=== PATIENT | female | born 1960 | race Caucasian/White ===

== ENCOUNTER 2018-03-19 00:29 | Outpatient (CLI) | payer BC, SELFPAY ==
--- NOTE | 2018-03-19 08:15 | DI.MAMMO_ITS ---
SYMPTOM/DIAGNOSIS: SCREENING, Z12.31 MAMMOGRAMS: Mammograms were interpreted according to the usual protocol including computer analysis with CAD system, tomosynthesis and C view imaging. Comparison with prior examinations. Breast density C. No masses or microcalcifications are seen. There is nothing to suggest malignancy. IMPRESSION: Negative mammogram. Routine screening is recommended. Category I. MQSA ASSESSMENT OF FINDINGS: Negative. Category 1. Patient will receive a letter notifying them of these results. Bi-RADS category C. The breasts are heterogeneously dense, which may obscure small masses.
== END 2018-03-19 00:49 ==
PROVIDERS: PCP Obstetrics & Gynecology; Visit Provider Obstetrics & Gynecology
DX: Z12.31 Encounter for screening mammogram for malignant neoplasm of breast (principal)
CPT/HCPCS: 77063; 77067

== ENCOUNTER 2018-12-22 11:32 | Emergency (ER) | payer BC, SELFPAY ==
[2018-12-22 11:37] VITALS: BP 125/89; PULSE 95; RESP 20; TEMP 36.9; O2SAT 95
[2018-12-22 11:40] VITALS: RESP 20
--- NOTE | 2018-12-22 11:49 | ED.GENADUL_ITS ---
Discharge Plan Disposition Patient Disposition: HOME Condition: Stable Discharge Details Chief Complaint: GenMedical Clinical Impression: Tick bite Primary Care Provider: Yamilka Monsivais ED Provider: Misael Ortega Home Meds and New Rx's Prescriptions: No Action No Known Home Meds RF: 0 Discharge Instructions Instructions: Tick Bite (ED) Additional Instructions: if the test returns positive you will be contacted if symptoms continue follow up with your primary care provider if you have high fevers, feel more ill or have new symptoms such as difficulty breathing, chest pain/pressure or abdominal pain return to the emergency department Medical Decision Making 58 yo female states 2 weeks ago she removed a tick from her left upper back and was not sure how long she had it. She has had some intermittent nausea otherwise no other systemic symptoms and came in today to have the area where the tick was removed looked at. She has a 0.5mm area of the left upper back that is mildly red without surrounding erythema or bulls eye, doesn't appear to be typical of lyme disease and no evidence of cellulitis. Will send tick panel, she has no symptoms now so do not feel further w/u indicated, no abd pain or chest pain. Advised f/u with pcp if symptoms continue intermittently and return if worsening Differential Diagnosis lyme, tick bite HPI General Mode of arrival: ambulatory . Date/Time Provider Initiated Documentation: 12/22/18 11:35 . Limitations to Documentation: no limitations . Information obtained by: patient . History of Present Illness 58 year old F presents to the emergency department with the chief complaint of tick bite, described as moderate, Quality is described as aching, Patient reports radiation to back. Patient started experiencing this week(s) (2) and it has been constant. No relieving factors improve symptom(s), No exacerbating factors reported . Patient notes other (nausea). Patient did receive the following treatments prior to arrival, none Related Data Home Medications Medication Instructions Recorded Confirmed Unknown [No Known Home Meds] 07/30/18 12/22/18 Allergies Allergy/AdvReac Type Severity Reaction Status Date / Time No Known Allergies Allergy Unverified 12/22/18 11:40 General Stated Complaint: GenMedical PERLA: 4 Review of Systems Review of Systems All systems reviewed & are unremarkable except as noted in HPI and below Constitutional Denies chills, Denies fever(s) and Denies weakness Cardiovascular Denies chest pain and Denies dyspnea Respiratory Denies dyspnea Gastrointestinal Denies abdominal pain and Denies vomiting Musculoskeletal Denies joint swelling Neurologic Denies weakness [facility] Surgical History (Updated 03/28/18 @ 14:35 by [place] [facility] [place]) Dilation and curettage Tonsillectomy Family History Mother Lymphoma of gastrointestinal tract Father No problems noted. Brother No problems noted. Brother No problems noted. Son No problems noted. Brother Personal history of malignant neoplasm Social History Smoking/Tobacco Use Status: Never Alcohol Intake: never Substance use type: does not use Do you feel safe at home: Yes Do you feel safe in your relationship?: Yes Exam Const General: no acute distress Orientation: alert HENMT Head: normal to inspection Ears: external ears normal General nose exam: external nose normal Mouth: moist mucous membranes Eyes General: appearance normal, both eyes and all related structures Neck Neck: normal visual inspection Resp Effort & Inspection: normal respiratory effort and able to speak in complete sentences Cardio Rate: regular rate Skin General skin exam: elasticity normal Neuro General: alert and oriented x3 Extrem General: normal to inspection Psych Mental Status: mental status grossly normal Course Vital Signs Temperature 36.9 C 12/22/18 11:37 Pulse 95 H 12/22/18 11:37 Respiratory Rate 20 12/22/18 11:37 Blood Pressure 125/89 12/22/18 11:37 Pulse Oximetry 95 12/22/18 11:37 Temperature 36.9 C 12/22/18 11:37 Pulse 95 H 12/22/18 11:37 Respiratory Rate 20 12/22/18 11:40 Respiratory Effort Non-Labored 12/22/18 11:40 Respiratory Depth Normal 12/22/18 11:40 Respiratory Pattern Normal 12/22/18 11:40 Blood Pressure 125/89 12/22/18 11:37 Pulse Oximetry 95 12/22/18 11:37 Oxygen Delivery Method Room Air 12/22/18 11:37 Oxygen Flow Rate 0 12/22/18 11:37 Pain Level 0 12/22/18 11:37
[2018-12-24 13:34] LABS: Lyme Ab w Rflx to Lyme Confirm Negative
[2018-12-25 15:26] LABS: Anaplasma phagocytophilum Negative (Negative); B. miyamotoi PCR Negative (Negative); Babesia divergens/MO-1 Negative (Negative); Babesia duncani Negative (Negative); Babesia microti Negative (Negative); Ehrlichia chaffeensis Negative (Negative); Ehrlichia ewingii/canis Negative (Negative); Ehrlichia muris eauclairensis Negative (Negative)
== END 2018-12-22 12:15 | disposition home or self-care (01) ==
PROVIDERS: Emergency Provider Emergency Medicine; PCP Nurse Practitioner Family
DX: S20.462A Insect bite (nonvenomous) of left back wall of thorax, initial encounter (principal); W57.XXXA Bitten or stung by nonvenomous insect and other nonvenomous arthropods, initial encounter
CPT/HCPCS: 87798; 99283; 86618

== ENCOUNTER 2019-03-20 01:26 | Outpatient (CLI) | payer BC, SELFPAY ==
--- NOTE | 2019-03-20 07:46 | DI.MAMMO_ITS ---
EXAM: MG MAMMO SCREENING CLINICAL HISTORY: SCREENING,Z12.31. TECHNIQUE: Mammograms were interpreted according to the usual protocol including computer analysis w [facility] CAD system, tomosynthesis and C-view imaging. FINDINGS: The breast tissue is heterogeneously radiodense which somewhat limits the sensitivity of the study. There is no dominant mass. There are no suspicious calcifications and there has been no significant i nterval change when compared with prior images. IMPRESSION: No evidence of malignancy category 1, yearly screening mammography is recommended. BI-RADS category C . BI-RADS Cat 1 - Negative. Breast Density - Category C - Heterogeneously dense.
[2019-03-20 09:39] LABS: Calculated LDL 143 mg/dL; Cholesterol 214 mg/dL (50-200); Glucose 89 mg/dL (70-100); HDL Cholesterol 56 mg/dL (40-60); Triglyceride 78 mg/dL (30-150)
== END 2019-03-20 01:46 ==
PROVIDERS: PCP Nurse Practitioner Family; Visit Provider Obstetrics & Gynecology
DX: Z12.31 Encounter for screening mammogram for malignant neoplasm of breast (principal); Z13.1 Encounter for screening for diabetes mellitus; Z13.220 Encounter for screening for lipoid disorders
CPT/HCPCS: 36415; 77063; 77067; 80061; 82947

== ENCOUNTER 2020-03-23 00:42 | Outpatient (CLI) | payer OTHER, SELFPAY ==
--- NOTE | 2020-03-23 | DI.MAMMO_ITS ---
EXAM: MG MAMMO SCREENING CLINICAL HISTORY: SCREENING, Z12.31 TECHNIQUE: Bilateral full field digital CC and MLO mammographic images were obtained with 3D tomosyn thesis and utilizing computer aided detection (CAD). COMPARISON: Available for comparison. FINDINGS: Masses/Architectural Distortion: None seen. Microcalcifications: No suspicious pleomorphic-type are seen. Skin Thickening/Nipple Retraction: None. IMPRESSION: 1. No significant interval change with no specific features of malignancy noted. 2. Unless there is more urgent need, screening mammography is recommended, as per [employer] guidelines. BI-RADS Category 1 - Negative Breast Density - Category C - Heterogeneously dense The mammogram demonstrates the patient's breast tissue is dense. Dense breast tissue is very common a nd is not abnormal but dense breast tissue can make it harder to find cancer on a mammogram. Also, de nse breast tissue may increase their breast cancer risk. This information about the result of the [facility] mogram report was provided to the patient to raise their awareness. Use this report when you speak wi th the patient about their risks for breast cancer, which includes their family history. At that time , you may recommend for more screening tests (Ultrasound or MRI) as they might be useful based on the ir risk. A negative radiographic report should not delay biopsy if a dominant or clinically suspicious mass is present. Up to ten percent of cancers are not identified on mammography. A negative report may reinforce clinical impression. Adenosis and dense breasts may obscure an underlying neoplasm. False positive reports average 6 to 10%. Patient will receive a letter notifying them of these results.
== END 2020-03-23 01:02 ==
PROVIDERS: PCP Nurse Practitioner Family; Visit Provider Obstetrics & Gynecology
DX: Z12.31 Encounter for screening mammogram for malignant neoplasm of breast (principal); R92.2 Inconclusive mammogram
CPT/HCPCS: 77063; 77067

== ENCOUNTER 2021-03-24 02:20 | Outpatient (CLI) | payer OTHER, SELFPAY ==
--- NOTE | 2021-03-24 | DI.MAMMO_ITS ---
Exam(s) MAMMO SCREENING EXAM: MAMMO SCREENING CLINICAL HISTORY: SCREENING, Z12.39. TECHNIQUE: Bilateral full field digital CC and MLO mammographic images were obtained with 3D tomosyn thesis and utilizing computer aided detection (CAD). COMPARISON: Prior mammograms dating back to 2011, the most recent being March 2012. FINDINGS: There are no CAD designations. There are no new spiculated masses nor malignant appearing microcalcification groups. There is no significant architectural distortion nor skin thickening-retraction. IMPRESSION: No radiographic evidence of malignancy. BI-RADS Category 1 - Negative Breast Density - Category C - Heterogeneously dense Breast density Category C or D implies that the patient has dense breast tissue. Dense breast tissue can make it harder to find cancer on a mammogram. Dense breast tissue is also associated with an incr eased risk of breast cancer. This information about the result of the mammogram report was provided to the patient to raise their awareness. Use this report when you speak with the patient about their risks for breast cancer, which includes their family history. At that time, you may recommend additional screening tests (Ultrasoun d or MRI) as these tests may add significant information. A negative radiographic report should not delay biopsy if a dominant or clinically suspicious mass is present. Up to ten percent of cancers are not identified on mammography. A negative report may reinforce clinical impression. Adenosis and dense breasts may obscure an underlying neoplasm. False positive reports average 6 to 10%. Patient will receive a letter notifying them of these results.
== END 2021-03-24 02:40 ==
PROVIDERS: PCP Nurse Practitioner Family; Visit Provider Obstetrics & Gynecology
DX: Z12.31 Encounter for screening mammogram for malignant neoplasm of breast (principal); R92.8 Other abnormal and inconclusive findings on diagnostic imaging of breast
CPT/HCPCS: 77063; 77067

== ENCOUNTER → 2022-03-28 01:23 | Outpatient (CLI) | payer OTHER, SELFPAY ==
--- NOTE | 2022-03-28 18:00 | DI.MAMMO_ITS ---
Exam(s) MAMMO SCREENING EXAM: MAMMO SCREENING CLINICAL HISTORY: SCREENING, Z12.31 TECHNIQUE: Bilateral full field digital CC and MLO mammographic images were obtained with 3D tomosyn thesis and utilizing computer aided detection (CAD). COMPARISON: Available for comparison. FINDINGS: Masses/Architectural Distortion: None seen. Microcalcifications: No suspicious pleomorphic-type are seen. Skin Thickening/Nipple Retraction: None. IMPRESSION: 1. No significant interval change with no specific features of malignancy noted. 2. Unless there is more urgent need, screening mammography is recommended, as per [employer] guidelines. BI-RADS Category 1 - Negative Breast Density - Category C - Heterogeneously dense Breast density category C or D implies that the patient has dense breast tissue. Dense breast tissue is very common and is not abnormal but dense breast tissue can make it harder to find cancer on a ma mmogram. Also, dense breast tissue may increase their breast cancer risk. This information about the result of the mammogram report was provided to the patient to raise their awareness. Use this report when you speak with the patient about their risks for breast cancer, which includes their family hist ory. At that time, you may recommend for more screening tests (Ultrasound or MRI) as they might be us eful based on their risk. A negative radiographic report should not delay biopsy if a dominant or clinically suspicious mass is present. Up to ten percent of cancers are not identified on mammography. A negative report may reinforce clinical impression. Adenosis and dense breasts may obscure an underlying neoplasm. False positive reports average 6 to 10%. Patient will receive a letter notifying them of these results.
== END ==
PROVIDERS: PCP Nurse Practitioner Family; Visit Provider Obstetrics & Gynecology
DX: Z12.31 Encounter for screening mammogram for malignant neoplasm of breast (principal)
CPT/HCPCS: 77063; 77067

== ENCOUNTER → 2023-05-09 02:17 | Outpatient (CLI) | payer OTHER, SELFPAY ==
--- NOTE | 2023-05-09 | DI.MAMMO_ITS ---
Exam(s) MAMMO SCREENING EXAM: MAMMO SCREENING CLINICAL HISTORY: SCREENING MAMMO FOR BREAST CANCER Z12.31. TECHNIQUE: Bilateral full field digital CC and MLO mammographic images were obtained with 3D tomosyn thesis and utilizing computer aided detection (CAD). COMPARISON: Prior mammograms were reviewed. FINDINGS: There has been no significant change in the appearance and distribution of the fibroglandular tissue. There are no CAD designations. There are no new spiculated masses nor malignant appearing microcalcification groups. There is no significant architectural distortion nor skin thickening-retraction. IMPRESSION: No radiographic evidence of malignancy. BI-RADS Category 1 - Negative Breast Density - Category B - Scattered areas of fibroglandular density Breast density Category C or D implies that the patient has dense breast tissue. Dense breast tissue can make it harder to find cancer on a mammogram. Dense breast tissue is also associated with an incr eased risk of breast cancer. This information about the result of the mammogram report was provided to the patient to raise their awareness. Use this report when you speak with the patient about their risks for breast cancer, which includes their family history. At that time, you may recommend additional screening tests (Ultrasoun d or MRI) as these tests may add significant information. A negative radiographic report should not delay biopsy if a dominant or clinically suspicious mass is present. Up to ten percent of cancers are not identified on mammography. A negative report may reinforce clinical impression. Adenosis and dense breasts may obscure an underlying neoplasm. False positive reports average 6 to 10%. Patient will receive a letter notifying them of these results.
== END ==
PROVIDERS: Visit Provider Obstetrics & Gynecology
DX: Z12.31 Encounter for screening mammogram for malignant neoplasm of breast (principal)
CPT/HCPCS: 77063; 77067

== ENCOUNTER 2023-10-02 15:48 | Outpatient (REF) | payer OTHER, SELFPAY ==
[2023-10-02 12:16] LABS: Abs Immature Grans 0.02 10^3/uL (0.0-0.06); Absolute Basophil Count 0.04 10^3/uL (0.0-0.2); Absolute Eosinophil Count 0.25 10^3/uL (0.0-0.7); Absolute Lymphocyte Count 1.36 10^3/uL (1.2-3.4); Absolute Monocyte Count 0.51 10^3/uL (0.1-0.8); Absolute Neutrophil Count 4.08 10^3/uL (1.2-6.7); Basophils % 0.6; HCT 41.3 % (36.0-46.0); HGB 13.6 g/dL (11.2-15.7); Immature Grans % 0.3; Lymphocytes % 21.7; MCH 30.4 pg (27.0-33.0); MCHC 32.9 % (32.0-36.0); MCV 92 fL (80-95); MPV 10.3 fL (8.0-11.0); Monocytes % 8.1; Neutrophils % 65.3; Platelet Count 309 10^3/uL (130-400); RBC 4.48 10^6/uL (3.93-5.22); RDW 12.7 % (11.7-14.6); RDW-SD 43.3 fL; WBC 6.26 10^3/uL (4.4-10.8)
[2023-10-02 12:31] LABS: ALT 21 U/L (14-59); AST 14 U/L (15-37); Albumin 3.8 g/dL (3.4-5.0); Alkaline Phosphatase 91 U/L (46-116); Anion Gap 7.8 mmol/L (3-11); BUN 14 mg/dL (7-18); Bilirubin, Total 0.4 mg/dL (0.2-1.0); CO2 29.2 mmol/L (21.0-32.0); CREATININE 0.7 mg/dL (0.55-1.02); Calcium 8.9 mg/dL (8.5-10.1); Chloride 108 mmol/L (98-107); Estimated GFR 98.34 (mL/min/1.73m2); Glucose 95 mg/dL (74-106); Lipase 32 U/L (16-77); Potassium 4.2 mmol/L (3.5-5.1); Sodium 145 mmol/L (136-145); Total Protein 6.7 g/dL (6.4-8.2)
== END 2023-10-02 15:49 | disposition home or self-care (01) ==
LOC: LBN 15:48
PROVIDERS: Visit Provider Nurse Practitioner Acute Care
DX: R10.11 Right upper quadrant pain (principal); N39.0 Urinary tract infection, site not specified
CPT/HCPCS: 80053; 83690; 85025; 87086

== ENCOUNTER → 2023-11-16 03:40 | Outpatient (CLI) | payer OTHER, SELFPAY ==
--- NOTE | 2023-11-16 06:45 | DI.CT_ITS ---
Exam(s) CT ABDOMEN PELVIS WO/W EXAM: CT ABDOMEN PELVIS WO/W CLINICAL HISTORY: rt hydronephrosis, rt upper quad pain, R10.11. TECHNIQUE: Imaging Protocol: Axial computed tomography images with coronal and sagittal reformatted images were created and reviewed CONTRAST MATERIAL: Intravenous: Omnipaque-350 100cc Oral: None COMPARISON: US US ABDOMEN LIMITED from 10/02/2023 FINDINGS: VISUALIZED LUNG BASES: No nodules nor pleural effusions evident. ABDOMEN: There is no ascites. LIVER: Liver size is normal. There is a small 5 millimeter cyst in the right hepatic lobe. No other focal hepatic findings nor dilated intrahepatic ducts. GALLBLADDER/BILIARY: No obvious gallbladder pathology. CBD is not dilated. PANCREAS: There is a cystic appearing hypodensity in the pancreatic tail measuring 6 x 7 no other foc al findings in the pancreas and the pancreatic duct is not dilated. Mm SPLEEN: Spleen is not enlarged. No obvious intrasplenic lesions. Splenic and portal veins are paten t. ADRENALS: There are no significant adrenal masses. KIDNEYS/URETERS::Kidneys exhibit normal size. Normal cortical thickness. There are no cortical cyst s nor solid renal masses. No calculi. No hydronephrosis. No hydroureter. No solid renal masses. No calculi nor hydronephrosis.. No significant filling defects in the renal pelves nor along the cou rse of the nondilated bilateral ureters. There is a solitary nondilated ureter on each side. No obv ious abnormality in the urinary bladder. ABDOMINAL AORTA: Abdominal aorta is not enlarged. LYMPH NODES:There is no retroperitoneal nor paraaortic adenopathy. ABDOMINAL WALL: No evidence of significant anterior abdominal wall nor inguinal hernia. GI: There is no evidence of bowel obstruction, free air, nor abscess. PELVIS: GI: No evidence of appendicitis.No evidence of sigmoid diverticulitis. LYMPH NODES: There is no intrapelvic nor inguinal adenopathy. REPRODUCTIVE: Uterus size unremarkable. No abnormal adnexal findings nor free fluid in the pelvis. URINARY BLADDER: No radiopaque calculi. No masses. No significant focal wall thickening. OSSEOUS: No fractures and no significant osseous lesions. Mild degenerative anterolisthesis L4 upon L5 related to facet arthropathy. No disc space narrowing. IMPRESSION: 1. No significant urinary tract findings. 2. Incidentally noted is a small 6 x 7 mm abnormal hypodensity in the pancreatic tail. Requires furt her investigation with contrast infused pancreatic MRI/MRCP for added specificity. There are no othe r pancreatic lesions and the pancreatic duct is not dilated. There is no peripancreatic fluid collec tion. No peripancreatic adenopathy. 3. Other findings as above. RADIATION DOSE DELIVERED: 2,688.38mGy.cm Total DLP DATA REPOSITORY: All CT scans at this facility are submitted to the National Radiology Data Registry (NRDR) Dose Index Registry (DIR) with the [employer] (A[employer]). RADIATION OPTIMIZATION: All CT scans at this facility use at least one of these dose optimization te chniques: automated exposure control; mA and/or kV adjustment per patient size (includes targeted exa ms where dose is matched to clinical indication); or iterative reconstruction.
[2023-11-16 08:49] LABS: CREATININE 0.8 mg/dL (0.55-1.02); Estimated GFR 83.78 (mL/min/1.73m2)
[2023-11-16] MEDS: Normal Saline - Diluent 50 ML VIAL IJ ×2 (09:04→09:06)
[2023-11-16] MEDS: Omnipaque 350 MG/ML 500 ML BTL-Imaging package IJ (09:05)
== END ==
PROVIDERS: PCP Nurse Practitioner Family; Visit Provider Nurse Practitioner Family
DX: R10.11 Right upper quadrant pain (principal)
CPT/HCPCS: 74178; 82565

== ENCOUNTER → 2023-12-04 01:52 | Outpatient (CLI) | payer OTHER, SELFPAY ==
[2023-12-04] MEDS: Normal Saline - Diluent 50 ML VIAL IJ (09:01)
[2023-12-04] MEDS: Gadoterate meglumine 20 ML VIAL 14 ML IVP (09:02)
--- NOTE | 2023-12-04 09:30 | DI.MRI_ITS ---
Exam(s) MR ABDOMEN WO/W EXAM: MR ABDOMEN WO/W CLINICAL HISTORY: MASS OF PANCREAS, F/U ABNL IMAGING,K86.89 TECHNIQUE: Multiplanar multisequence MRI of the Abdomen was performed. CONTRAST MATERIAL: IV Contrast: 14 mL of Dotarem contrast administered. COMPARISON: CT CT ABDOMEN PELVIS WO/W from 11/16/2023 FINDINGS: Liver: There is a 7 mm simple cyst in the posterior segment of the right lobe of the liver. This is shows no enhancement following contrast administration. No suspicious hepatic lesions are present. Pancreas: There is a 0.9 x 0.7 cm well-circumscribed cyst in the tail of the pancreas. (Series 3001 image 18). There is no enhancement following contrast administration. The pancreas is otherwise unr emarkable. Gallbladder and Bile Ducts: There is a small stones seen in the neck of the gallbladder. No biliary ductal dilatation. Adrenals: Unremarkable. Kidneys: Unremarkable. Spleen: Unremarkable. Bowel: Unremarkable. No evidence of bowel obstruction. Aorta: Unremarkable. No evidence of an aneurysm. Soft Tissues: Unremarkable. Bone: Unremarkable. Lymph Nodes: Unremarkable. IMPRESSION: 1. Simple 0.9 x 0.7 cm nonenhancing simple cyst in the tail of the pancreas. Recommendation is for y early follow-up for 5 years to document stability of the lesion. (Maria A et al, 2017). 2. Simple hepatic cysts. No follow-up is recommended. 3. No acute abdominal process. DATA REPOSITORY:
== END ==
PROVIDERS: PCP Nurse Practitioner Family; Visit Provider Nurse Practitioner Family
DX: K86.89 Other specified diseases of pancreas (principal)
CPT/HCPCS: 74183

== ENCOUNTER 2024-05-10 00:20 | Outpatient (CLI) | payer OTHER, SELFPAY ==
--- NOTE | 2024-05-10 | DI.MAMMO_ITS ---
Exam(s) MAMMO SCREENING EXAM: MAMMO SCREENING CLINICAL HISTORY: SCREENING, Z12.31 TECHNIQUE: Bilateral full field digital CC and MLO mammographic images were obtained with 3D tomosyn thesis and utilizing computer aided detection (CAD). COMPARISON: Available for comparison. FINDINGS: Masses/Architectural Distortion: None seen. Microcalcifications: No suspicious pleomorphic-type are seen. Skin Thickening/Nipple Retraction: None. IMPRESSION: 1. No significant interval change with no specific features of malignancy noted. 2. Unless there is more urgent need, screening mammography is recommended, as per [employer] guidelines. BI-RADS Category 1 - Negative Breast Density - Category B - Scattered areas of fibroglandular density Breast density category C or D implies that the patient has dense breast tissue. Dense breast tissue is very common and is not abnormal but dense breast tissue can make it harder to find cancer on a ma mmogram. Also, dense breast tissue may increase their breast cancer risk. This information about the result of the mammogram report was provided to the patient to raise their awareness. Use this report when you speak with the patient about their risks for breast cancer, which includes their family hist ory. At that time, you may recommend for more screening tests (Ultrasound or MRI) as they might be us eful based on their risk. A negative radiographic report should not delay biopsy if a dominant or clinically suspicious mass is present. Up to ten percent of cancers are not identified on mammography. A negative report may reinforce clinical impression. Adenosis and dense breasts may obscure an underlying neoplasm. False positive reports average 6 to 10%. Patient will receive a letter notifying them of these results.
== END 2024-05-10 00:40 ==
LOC: DI 00:21
PROVIDERS: PCP Nurse Practitioner Family; Visit Provider Obstetrics & Gynecology
DX: Z12.31 Encounter for screening mammogram for malignant neoplasm of breast (principal); R92.323 Mammographic fibroglandular density, bilateral breasts
CPT/HCPCS: 77063; 77067

== ENCOUNTER 2024-06-27 17:02 | Emergency (ER) | payer BC, SELFPAY ==
--- NOTE | 2024-06-27 17:00 | RT.EKG_ITS ---
APPROVED REPORT Exam: Resting ECG Reason for Exam: Chest Pain Patient Location: E HR:70 bpm ECG Measurements Heart Rate 70 AXIS WI 193 P 49 QRSd 72 QRS 42 QT 373 T 63 QTc 402 Conclusion Sinus rhythm. 70 normal axis no stemi
[2024-06-27 17:09] VITALS: BP 138/91; PULSE 77; RESP 20; TEMP 36.4; O2SAT 97
--- NOTE | 2024-06-27 17:15 | DI.RAD_ITS ---
Exam(s) XR CHEST 2V PA LATERAL EXAM: XR CHEST 2V PA LATERAL CLINICAL HISTORY: Chest pain TECHNIQUE: 2D digital imaging was performed of the chest. Two images were obtained. PA and lateral views were obtained. COMPARISON: No exams were available for comparison FINDINGS: MEDIASTINUM: Normal. HEART: Normal. PULMONARY VASCULATURE: Normal. LUNGS: Clear. PLEURAL SPACE: No pleural effusion or pneumothorax. BONE:Within normal limits for the patient's age. OTHER FINDINGS:Normal. IMPRESSION: No acute pulmonary findings. DATA REPOSITORY: RADIATION DOSE DELIVERED:
[2024-06-27] MEDS: Aspirin 81 MG CHEW 324 MG CH (17:40)
--- NOTE | 2024-06-27 17:47 | W.ED.GENAD ---
Discharge Plan Disposition Patient Disposition: Home Condition: Stable Discharge Details Clinical Impression: Chest pain, Palpitations Primary Care Provider: Rios Garcia ED Provider: Roberta Dan Home Meds and New Rx's Prescriptions: No Action No Known Home Meds Discharge Instructions Instructions: Chest Pain, Adult ED, Palpitations ED Additional Instructions: At this time your cardiac workup is within normal limits. No evidence for acute heart attack at this time. No evidence for pneumonia no evidence for blood clots in your lungs. I have ordered an outpatient Holter monitor for you to wear for the 2 days this will monitor your heart rhythm for any abnormalities. Respiratory therapy will call you to schedule a time to get it put on. Follow up with primary care provider in 3-5 days. Return to ED sooner if any worsening pain, nausea vomiting, shortness of breath, dizziness or concerns. Please take Tylenol or Ibuprofen with food every 4-6 hours as needed for pain and swelling. Referrals: Rios Garcia, [employer] [Primary Care Provider] - 3 days Discharge Orders Other Ambulatory Orders: Holter Monitor (Routine) Timeframe: 1 Week Facility: [facility] - Location: Respiratory Therapy Ordered By: Roberta Dan [facility] General Mode of arrival: ambulatory. Date/Time Provider Initiated Documentation: 06/27/24 17:27. Limitations to Documentation: no limitations. Information obtained by: patient, RN notes reviewed and old records reviewed. HPI Narrative: 63-year-old female presents to the ER with a chief complaint of right-sided chest pain which has been ongoing for the last 3 weeks. She reports that there is a sore spot. She also reports that she has had funny beats. Denies any shortness of breath dizziness nausea cough or any other associated symptoms. She is a non-smoker no history of high cholesterol. She does have a past medical history of a mass on the head of her pancreas, abnormal Pap smear. She is postmenopausal. Related Data Home Medications ?Medication ?Instructions ?Recorded ?Confirmed Unknown [No Known Home Meds] 07/30/18 06/27/24 Allergies Allergy/AdvReac Type Severity Reaction Status Date / Time No Known Allergies Allergy Verified 06/27/24 17:15 General Stated Complaint: Chest Pain PERLA: 3 Review of Systems All systems reviewed & are unremarkable except as noted in HPI and below Cardiovascular Cardiovascular: Reports as per HPI, Reports chest pain and Denies dyspnea on exertion Respiratory Respiratory: Denies dyspnea on exertion Exam Narrative Exam Narrative: Constitutional: Alert and oriented x3. Appears stated age. Normal body habitus. Head: Normocephalic, no trauma. Eyes: Pupils PERRL, Red reflex noted, EOM's intact. Eyelids symmetrical without lesions, discharge, or swelling. ENT: Bilateral TM's WNL, External ear normal to inspection, no mastoid TTP, swelling, or erythema, Nasal turbinates WNL, no nasal discharge. Normal dentition, Posterior pharynx WNL, no exudate. Chest: RRR, Normal S1, S2, distal pulses intact. Resp: Lungs clear to auscultation bilaterally, no wheezes, rales, or rhonchi. Abdomen: Soft, non-distended, Normoactive bowel sounds all 4 quads. Musculoskeletal: Normal gait, Moves all 4 extremities without difficulty. Skin: No suspicious rashes or lesions. Capillary refill less than 2 sec. Neurologic: Cranial nerves II-XII intact. Alert and oriented x 3. Motor: No deficits noted. Sensory: Intact bilaterally all 4 extremities. Hematologic/Lymphatic: No ecchymosis, no lymphadenopathy. Course Vital Signs Vital signs: Vital Signs Temperature 36.4 C L 06/27/24 17:09 Pulse 77 06/27/24 17:09 Respiratory Rate 20 06/27/24 17:09 Blood Pressure 138/91 H 06/27/24 17:09 Pulse Oximetry 97 06/27/24 17:09 Temperature 36.4 C L 06/27/24 17:09 Temperature Source Oral 06/27/24 17:09 Pulse 77 06/27/24 17:09 Respiratory Rate 20 06/27/24 17:09 Blood Pressure 138/91 H 06/27/24 17:09 Blood Pressure Position Sitting 06/27/24 17:09 Pulse Oximetry 97 06/27/24 17:09 Oxygen Delivery Method Room Air 06/27/24 17:09 Oxygen Flow Rate 0 06/27/24 17:09 Pain Level 5 06/27/24 17:09 Comment Annoying pain 06/27/24 17:09 Medical Decision Making 63-year-old female presents to the ER with a chief complaint of right-sided chest pain which has been ongoing for the last 3 weeks. She reports that there is a sore spot. She also reports that she has had funny beats. Denies any shortness of breath dizziness nausea cough or any other associated symptoms. She is a non-smoker no history of high cholesterol. She does have a past medical history of a mass on the head of her pancreas, abnormal Pap smear. She is postmenopausal. EKG was reviewed by myself and Dr. Abarca ER attending, no old EKG available for review. Workup ordered including CBC CMP serial troponins lipase chest x-ray and 324 mg chewable aspirin. Workup is largely unremarkable, troponin less than 4, lipase within normal limits no leukocytosis electrolytes all within normal limits. Chest x-ray is negative. Will consider a Holter monitor as patient is complaining of palpitations. Will also await the 1 hour troponin most likely disposition is discharge home pending repeat Trope. Repeat troponin within normal limits. Holter monitor ordered for chest pain and palpitations. Patient remained hemodynamically stable throughout the remainder of stay. This text was generated using [employer] system, please disregard any oddities of phrase or misspellings. Medical Records Medical records reviewed: Yes I reviewed the patient's medical records. Lab Data Lab results reviewed: Yes I reviewed the patient's lab results. Labs: Laboratory Tests Range/Units 06/27/24 17:46 WBC (4.4-10.8) 10^3/uL 8.27 RBC (3.93-5.22) 10^6/uL 4.68 Hgb (11.2-15.7) g/dL 14.1 Hct (36.0-46.0) % 42.7 MCV (80-95) fL 91 MCH (27.0-33.0) pg 30.1 MCHC (32.0-36.0) % 33.0 RDW (11.7-14.6) % 12.6 Plt Count (130-400) 10^3/uL 300 MPV (8.0-11.0) fL 9.5 Immature Gran % % 0.5 Neutrophils % % 65.7 Lymphocytes % % 21.2 Monocytes % % 8.2 Eosinophils % % 3.9 Basophils % % 0.5 Nucleated RBC % (0.0-0.3) % 0.0 Absolute Neutrophils (1.2-6.7) 10^3/uL 5.44 Absolute Lymphocytes (1.2-3.4) 10^3/uL 1.75 Absolute Monocytes (0.1-0.8) 10^3/uL 0.68 Absolute Eosinophils (0.0-0.7) 10^3/uL 0.32 Absolute Basophils (0.0-0.2) 10^3/uL 0.04 D-Dimer (<500) ng/mlFEU 357 Sodium (136-145) mmol/L 141 Potassium (3.5-5.1) mmol/L 3.9 Chloride (98-107) mmol/L 105 Carbon Dioxide (21.0-32.0) mmol/L 29.5 Anion Gap (3-11) mmol/L 6.5 BUN (7-18) mg/dL 16 Creatinine (0.55-1.02) mg/dL 0.7 Est GFR (CKD-EPI 2020) (mL/min/1.73m2) 98.34 Glucose (74-106) mg/dL 90 Calcium (8.5-10.1) mg/dL 9.4 Magnesium (1.8-2.4) mg/dL 2.0 Total Bilirubin (0.2-1.0) mg/dL 0.37 AST (15-37) U/L 19 ALT (14-59) U/L 24 Alkaline Phosphatase (46-116) U/L 95 Troponin I (<or=51) ng/L < 4 Total Protein (6.4-8.2) g/dL 7.2 Albumin (3.4-5.0) g/dL 3.7 Lipase (<78) U/L 35 Quality:SDOH Health Related Social Needs: No Data to Display PFSH All Active Problems (Updated 06/27/24 @ 19:48 by Roberta Dan NP) Palpitations (Acute) Chest pain (Acute) Pancreatic mass (Acute) 0.9 x 0.7 cm well-circumscribed cyst in the tail of the pancreas. Needs annual MRIs x 5 years Gall stone (Acute) MALACHI (stress urinary incontinence, female) (Acute) Atrophic vaginitis (Acute) Medical History Mass of head of pancreas 11/16/23 6x7 mm Abnormal Pap smear of cervix Right upper quadrant abdominal pain Impacted cerumen of left ear (08/25/15) Menopause Surgical History Tonsillectomy Dilation and curettage Family History Mother Lymphoma of gastrointestinal tract Brother Personal history of malignant neoplasm TESTICULAR Father No problems noted. Son No problems noted. Social History Smoking/Tobacco Use Status: Never Smoking risk assessment performed?: Yes Alcohol Intake: never Drug use: Never Substance use type: does not use Adopted: No Caregiver/Support person: No Household members: significant other Housing: house Number of Children: 1 number of grandchildren: 1 Communication Needs: None Education Level: high school Do you need help understanding health information?: Never current occupation: insurance examiner/quality officer Sexually active: No Current gender identity: female What is your relationship status?: living with partner How often do you talk on the phone with friends or family?: three or more times per week How often do you get together with friends or relatives?: once per week Do you belong to any clubs or organized social groups?: no Panel score (0-1 are the most socially isolated patients): 2 NHANES result reviewed/action taken: Yes What type of physical activity do you participate in: walking Duration: 45-60 minutes/day Frequency: 3-4 times per week Ila/Sikhism: Non mosque Special ila needs: No Seatbelt use: always Helmet use: Yes Helmet use: always Drive intox or ride w/intox commercial front load driver: No Firearms in home: Yes Firearms unloaded and locked: Yes Do you feel safe at home: Yes Do you feel safe in your relationship?: Yes Victim of physical abuse: No Victim of emotional abuse: No Victim of sexual abuse: No Would you like helpful sources: No History History 2 Para 1 Hx # Term Pregnancies Multiple births Hx # Pregnancies Ectopic pregnancies AB induced Hx Number of Living Children AB spontaneous
[2024-06-27 17:58] LABS: Abs Immature Grans 0.04 10^3/uL (0.0-0.06); Absolute Basophil Count 0.04 10^3/uL (0.0-0.2); Absolute Eosinophil Count 0.32 10^3/uL (0.0-0.7); Absolute Lymphocyte Count 1.75 10^3/uL (1.2-3.4); Absolute Monocyte Count 0.68 10^3/uL (0.1-0.8); Absolute Neutrophil Count 5.44 10^3/uL (1.2-6.7); Basophils % 0.5 %; Eosinophils % 3.9 %; HCT 42.7 % (36.0-46.0); HGB 14.1 g/dL (11.2-15.7); Immature Grans % 0.5 %; Lymphocytes % 21.2 %; MCH 30.1 pg (27.0-33.0); MCV 91 fL (80-95); MPV 9.5 fL (8.0-11.0); Monocytes % 8.2 %; Neutrophils % 65.7 %; Platelet Count 300 10^3/uL (130-400); RBC 4.68 10^6/uL (3.93-5.22); RDW 12.6 % (11.7-14.6); RDW-SD 41.5 fL; WBC 8.27 10^3/uL (4.4-10.8)
[2024-06-27 18:15] LABS: ALT 24 U/L (14-59); AST 19 U/L (15-37); Albumin 3.7 g/dL (3.4-5.0); Alkaline Phosphatase 95 U/L (46-116); Anion Gap 6.5 mmol/L (3-11); BUN 16 mg/dL (7-18); Bilirubin, Total 0.37 mg/dL (0.2-1.0); CO2 29.5 mmol/L (21.0-32.0); CREATININE 0.7 mg/dL (0.55-1.02); Chloride 105 mmol/L (98-107); Estimated GFR 98.34 (mL/min/1.73m2); Glucose 90 mg/dL (74-106); Lipase 35 U/L (<78); Potassium 3.9 mmol/L (3.5-5.1); Sodium 141 mmol/L (136-145); Total Protein 7.2 g/dL (6.4-8.2)
[2024-06-27 18:19] LABS: D-Dimer 357 ng/mlFEU (<500)
[2024-06-27 18:20] LABS: Calcium 9.4 mg/dL (8.5-10.1)
[2024-06-27 18:23] LABS: Troponin I < 4 ng/L (<or=51)
[2024-06-27 19:41] LABS: Troponin I 4 ng/L (<or=51)
[2024-06-27 20:05] VITALS: RESP 20
== END 2024-06-27 20:06 | disposition home or self-care (01) ==
PROVIDERS: Emergency Provider Registered Nurse Emergency; PCP Nurse Practitioner Family
DX: R00.2 Palpitations (principal); R07.9 Chest pain, unspecified
CPT/HCPCS: 80053; 83690; 93005; 99284; 71046; 83735; 84484; 85025; 85379; 93010

== ENCOUNTER 2024-07-05 14:53 | Outpatient (RCR) | payer BC, SELFPAY ==
--- NOTE | 2024-07-11 08:49 | W.HOLTRPT ---
Date of service: 07/11/24 Time of Service: 08:49 Holter Monitor Report Referring Provider:: Rios Bah Indications:: Palpitations Holter Monitor Note: This is a 48-hour Holter monitor. Rhythm throughout was sinus with an average heart rate of 76. Minimum was 51, maximum 135 There were very rare isolated atrial and ventricular ectopic beats. There was no atrial fibrillation, no high-grade AV block, no pauses greater than 3 seconds. No symptoms were reported
== END 2024-07-12 23:59 | disposition home or self-care (01) ==
LOC: CARDOPNVT 14:53
PROVIDERS: PCP Nurse Practitioner Family; Visit Provider Internal Medicine Cardiovascular Disease
DX: R00.2 Palpitations (principal)
CPT/HCPCS: 93225; 93226

== ENCOUNTER → 2025-05-27 00:28 | Outpatient (CLI) | payer BC, SELFPAY ==
--- NOTE | 2025-05-27 | DI.MAMMO_ITS ---
Exam(s) MAMMO SCREENING EXAM: MAMMO SCREENING CLINICAL HISTORY: ROUTINE GYNECOLOGICAL EXAM W/O ABNL FINDINGS Z01.419 TECHNIQUE: Mammograms were interpreted according to the usual protocol including computer analysis with CAD system, tomosynthesis and C-view imaging. COMPARISON: 2015 through 2023 FINDINGS: The breasts are composed of scattered fibroglandular densities, Breast Density category B. No suspicious masses or suspicious microcalcifications are seen. No skin thickening or abnormal axillary lymph nodes are seen. There has been no significant change from prior exams. IMPRESSION: BI-RADS Category 1, Negative mammogram Yearly screening mammography is recommended. Breast Density - Category B - There are scattered areas of fibroglandular density. Breast density Category C or D implies that the patient has dense breast tissue. Dense breast tissue can make it harder to find cancer on a mammogram. Dense breast tissue is also associated with an increased risk of breast cancer. This information about the result of the mammogram report was provided to the patient to raise their awareness. Use this report when you speak with the patient about their risks for breast cancer, which includes their family history. At that time, you may recommend additional screening tests (Ultrasound or MRI) as these tests may add significant information. A negative radiographic report should not delay biopsy if a dominant or clinically suspicious mass is present. Up to ten percent of cancers are not identified on mammography. A negative report may reinforce clinical impression. Adenosis and dense breasts may obscure an underlying neoplasm. False positive reports average 6 to 10%. Patient will receive a letter notifying them of these results.
== END ==
LOC: DI 00:37
PROVIDERS: PCP Nurse Practitioner Family; Visit Provider Obstetrics & Gynecology
DX: Z01.419 Encounter for gynecological examination (general) (routine) without abnormal findings (principal)
CPT/HCPCS: 77063; 77067